=== PATIENT | female | born 1990 | race Caucasian/White ===

== ENCOUNTER 2022-03-16 04:00 | Inpatient (IN) ==
[2022-03-16] MEDS ORDERED: Famotidine 20 MG/2 ML VIAL IVP PRN (04:09)
[2022-03-16] MEDS ORDERED: miSOPROStoL 25 MCG TABLET PO PRN (04:09)
[2022-03-16] MEDS ORDERED: Azithromycin 500 MG in 0.9 % Sodium Chloride 250 ML IVPB PRN (04:09)
[2022-03-16] MEDS ORDERED: Ondansetron 4 MG/2 ML VIAL IVP PRN (04:09)
[2022-03-16] MEDS ORDERED: Metoclopramide 10 MG/2 ML VIAL IVP PRN (04:09)
[2022-03-16] MEDS ORDERED: *HR* Nalbuphine 10 MG/ML AMPUL IV PRN (04:09)
[2022-03-16] MEDS ORDERED: Naloxone 0.4 MG/ML INJ IVP PRN (04:09)
[2022-03-16] MEDS ORDERED: Ringers Solution, Lactated 1,000 ML IVC SCH (04:15)
[2022-03-16] MEDS ORDERED: EPHEDrine 50 MG/ML VIAL IVP PRN ×2 (04:44→08:02)
[2022-03-16] MEDS ORDERED: Epidural Premix (fent/bupiv) 110 ML EP SCH ×2 (04:45→08:15)
[2022-03-16 05:32] LABS: Amphetamine Screen,Urine Negative ng/mL (Cutoff=1000); Barbiturate Screen,Urine Negative ng/mL (Cutoff=200); Basophils # 0.1 K/mcL (0.0-0.2); Basophils % 0.7 %; Benzodiazepines Screen,Urine Negative ng/mL (Cutoff=200); Cannabinoid Screen,Urine Negative ng/mL (Cutoff = 50); Cocaine Screen,Urine Negative ng/mL (Cutoff= 300); Eosinophils # 0.2 K/mcL (0.0-0.6); Eosinophils % 1.7 %; Hematocrit 36.7 % (35.3-44.9); Hemoglobin 12.2 g/dL (11.5-15.4); Immature Granulocytes % 4.7 % (0-4); Lymphocytes # 1.8 K/mcL (0.6-4.6); Lymphocytes % 16.5 %; Mean Corpuscular HGB Conc 33.2 g/dL (31.6-35.5); Mean Corpuscular Hemoglobin 30.3 pg (28.0-33.3); Mean Corpuscular Volume 91.3 fL (83.0-100.0); Mean Platelet Volume 10.7 fL (9.4-12.4); Monocytes # 1.1 K/mcL (0.0-1.3); Monocytes % 10.2 %; Neutrophils # 7.2 K/mcL (1.6-8.9); Opiate Screen,Urine Negative ng/mL (Cutoff=300); Phencyclidine Screen,Urine Negative ng/mL (Cutoff=25); Platelet Count 187 K/mcL (140-400); Red Blood Count 4.02 M/mcL (3.82-4.97); Red Cell Distribution Width 13.5 % (11.5-14.5); Segmented Neutrophils % 66.2 %
[2022-03-16] MEDS ORDERED: Terbutaline 1 MG/ML VIAL SQ ONE ×2 (06:03→06:04)
[2022-03-16] MEDS ORDERED: Ropivacaine/PF 0.2% 20 ML VIAL EP ONE (08:02)
[2022-03-16] MEDS ORDERED: *HR* FentaNYL (PF) 100 MCG/2 ML VIAL EP ONE (08:02)
[2022-03-16] MEDS ORDERED: Oxytocin 30 UNIT/503 ML BAG IVC SCH (09:30)
[2022-03-16] MEDS ORDERED: Ropivacaine/PF 0.2% 20 ML VIAL ONE (17:19)
[2022-03-16] MEDS ORDERED: *HR* FentaNYL (PF) 100 MCG/2 ML VIAL ONE (17:19)
[2022-03-16] MEDS ORDERED: 0.9 % Sodium Chloride 500 ML ONE (23:14)
[2022-03-17] MEDS ORDERED: Lidocaine/EPI 1:200k 2% PF 20 ML VIAL ONE (01:03)
[2022-03-17] MEDS ORDERED: Ondansetron 4 MG/2 ML VIAL ONE (01:15)
[2022-03-17] MEDS ORDERED: *HR* Morphine Sulfate/PF 10 MG/10 ML AMPUL ONE (01:33)
[2022-03-17] MEDS ORDERED: Ketorolac 30 MG/ML VIAL ONE (01:34)
[2022-03-17] MEDS ORDERED: Acetaminophen IV 1,000 MG/100 ML BAG IVPB ONE (01:34)
[2022-03-17] MEDS ORDERED: Promethazine 6.25 MG in Water for inj. (sterile) 20 ML IVPB PRN (01:56)
[2022-03-17] MEDS ORDERED: Ondansetron 4 MG/2 ML VIAL IVP PRN ×2 (01:56→04:59)
[2022-03-17] MEDS ORDERED: *HR* HYDROmorphone PF 0.5 MG/0.5 ML SYRINGE IVP PRN (01:56)
[2022-03-17] MEDS ORDERED: Ringers Solution, Lactated 1,000 ML ONE ×2 (01:59→09:35)
[2022-03-17] MEDS ORDERED: *HR* Phenylephrine 10 MG/ML VIAL ONE (02:17)
[2022-03-17] MEDS ORDERED: Simethicone 80 MG TAB.CHEW PO PRN (04:59)
[2022-03-17] MEDS ORDERED: Metoclopramide 10 MG/2 ML VIAL IVP PRN (04:59)
[2022-03-17] MEDS ORDERED: *HR* OxyCODONE Immed Rel 5 MG TABLET PO PRN (04:59)
[2022-03-17] MEDS ORDERED: Oxytocin 30 UNIT/503 ML BAG IVC SCH (04:59)
[2022-03-17] MEDS: Ibuprofen 600 MG TABLET PO SCH ×3 (05:39→20:17)
[2022-03-17] MEDS: Acetaminophen 325 MG TABLET PO SCH ×3 (05:39→20:17)
[2022-03-17] MEDS ORDERED: NON-FORMULARY MEDICATION 1 EACH EACH (Prenatal Caplet 1 TAB) PO SCH (09:00)
[2022-03-17] MEDS: Prenatal Vit/FA 1 EACH TABLET PO SCH (09:52)
[2022-03-17] MEDS: metroNIDAZOLE 500 MG TABLET PO SCH ×3 (09:52→23:34)
[2022-03-17] MEDS: ceFAZolin 1,000 MG in Water for inj. (sterile) 10 ML IVP SCH ×3 (09:55→23:33)
[2022-03-17] MEDS ORDERED: Methylergonovine 0.2 MG/ML AMPUL IM ONE (18:25)
[2022-03-17 23:44] VITALS: O2SAT 99
[2022-03-18] MEDS: Ibuprofen 600 MG TABLET PO SCH ×3 (01:43→14:56)
[2022-03-18] MEDS: Acetaminophen 325 MG TABLET PO SCH ×3 (01:43→14:55)
[2022-03-18 03:55] LABS: Basophils % 0.4 %; Eosinophils # 0.1 K/mcL (0.0-0.6); Eosinophils % 1.3 %; Hematocrit 28.1 % (35.3-44.9); Immature Granulocytes % 2.4 % (0-4); Lymphocytes # 1.5 K/mcL (0.6-4.6); Lymphocytes % 13.3 %; Mean Corpuscular HGB Conc 32.4 g/dL (31.6-35.5); Mean Corpuscular Volume 92.7 fL (83.0-100.0); Mean Platelet Volume 10.6 fL (9.4-12.4); Monocytes # 1.1 K/mcL (0.0-1.3); Monocytes % 9.7 %; Neutrophils # 8.2 K/mcL (1.6-8.9); Platelet Count 139 K/mcL (140-400); Red Blood Count 3.03 M/mcL (3.82-4.97); Segmented Neutrophils % 72.9 %; White Blood Count 11.2 K/mcL (4.3-11.1)
[2022-03-18 04:30] LABS: Hemoglobin 9.1 g/dL (11.5-15.4)
[2022-03-18 07:06] VITALS: BP 104/61; PULSE 89; TEMP 97.8
[2022-03-18] MEDS: metroNIDAZOLE 500 MG TABLET PO SCH ×2 (08:56→14:55)
[2022-03-18] MEDS: Prenatal Vit/FA 1 EACH TABLET PO SCH (09:00)
== END 2022-03-18 18:26 | disposition home or self-care (01) | DRG 788 ==
LOC: 1NENULAB 04:02 → 1NENUOBS 03-17 04:50
PROVIDERS: ADMIT Obstetrics & Gynecology; ATTEND Obstetrics & Gynecology